=== PATIENT | female | born 1955 | race Caucasian/White ===

== ENCOUNTER 2016-12-11 18:55 | Emergency (ER) | payer OTHER ==
[~2016-12-11 18:55] MED LIST: ACETAMINOPHEN325 MG PO; ACETAMINOPHN-B1 EACH PO; ADVAIR 500-501 EACH IH; ADVAIR 500-501 EACH INH; ALBUTEROL S3 ML/VIAL NEB; ASPIR 8181 MG PO; BROVANA15 MCG/2 M NEB; CHERATUSSIN DA473 ML PO; CITRUCEL POWDE850 GM PO; COMBIVENT RESPIM4 GM IH; CYCLOBENZAPRINE10 MG PO; DOXYCYCLINE HY100 MG PO; FIORICET/BUTALBI1 EA PO; FIORINAL 50-321 EACH PO; FISH OIL300 MG PO; FLUTICASONE PRO16 GM; FLUTICASONE PRO16 GM NS; GLUCOPHAGE XR500 MG PO; GLUCOPHAGE1000 MG PO; HYDROCHLOROTHIA25 MG PO; HYDROCODON-ACE1 EAC6 PO; IPRAT-ALBUT 0.5-3 ML NEB; JANUVIA100 MG PO; LANSOPRAZOLE30 MG PO; LASIX40 MG PO; LIDODERM700 MG TD; LISINOPRIL10 MG PO; LYRICA100 MG PO; MAGNESIUM OXID400 MG PO; MAGOX 400400 MG PO; MIRAPEX0.125 MG PO; MUCINEX600 MG PO; NICOTINE TRANSD21 MG TD; NICOTINE TRANSD21 MG TOP; NORCO 10-325 T1 EACH PO; NORVASC2.5 MG PO; NORVASC5 MG PO; POLYETHYLENE GL17 GM PO; PREDNISONE10 MG PO; PREVACID30 MG PO; PRINIVIL20 MG PO; PRINIVIL5 MG PO; PULMICORT0.5 MG/2 M NEB; SENNA S TABLET1 EACH PO; SENNA-S TABLET1 EACH PO; SPIRIVA18 MCG IH; SPIRIVA18 MCG INH; TESSALON PERLE100 MG PO; THEO-24300 MG PO; THEOCHRON300 MG PO; THEOPHYLLINE A300 MG PO; VENTOLIN HFA8 GM IH; VENTOLIN HFA8 GM INH; VIBRAMYCIN100 MG PO; VITAMIN D32000 UNI1 PO; XALATAN2.5 ML OU; XANAX0.25 MG PO; ZOFRAN4 MG PO; ZYRTEC10 MG PO
== END 2016-12-11 20:28 | disposition home or self-care (01) ==
LOC: ER 18:55
DX: L50.9 Urticaria, unspecified (principal); J44.9 Chronic obstructive pulmonary disease, unspecified; F41.1 Generalized anxiety disorder; E78.5 Hyperlipidemia, unspecified; E11.9 Type 2 diabetes mellitus without complications; I10 Essential (primary) hypertension; F17.210 Nicotine dependence, cigarettes, uncomplicated; Z90.89 Acquired absence of other organs; Z90.710 Acquired absence of both cervix and uterus; Z79.899 Other long term (current) drug therapy; Z79.82 Long term (current) use of aspirin; Z88.8 Allergy status to other drugs, medicaments and biological substances; Z88.1 Allergy status to other antibiotic agents; Z91.041 Radiographic dye allergy status; Z88.5 Allergy status to narcotic agent
CPT/HCPCS: 96374; 96375; J1200

== ENCOUNTER 2017-02-04 00:16 | Emergency (ER) | payer OTHER | END 2017-02-04 04:06 | disposition home or self-care (01) | LOC: ER 00:16 | DX: E11.65 Type 2 diabetes mellitus with hyperglycemia (principal); E87.5 Hyperkalemia; I10 Essential (primary) hypertension; Z87.891 Personal history of nicotine dependence; Z99.81 Dependence on supplemental oxygen; Z90.711 Acquired absence of uterus with remaining cervical stump; Z79.82 Long term (current) use of aspirin; Z79.84 Long term (current) use of oral hypoglycemic drugs; Z79.899 Other long term (current) drug therapy; Z88.1 Allergy status to other antibiotic agents; Z91.041 Radiographic dye allergy status; Z88.8 Allergy status to other drugs, medicaments and biological substances | CPT/HCPCS: 36415; 96361; 96374 ==